=== PATIENT | male | born 1960 | race Caucasian/White ===

== ENCOUNTER 2017-08-09 09:56 | Outpatient (CLI) | payer OTHER ==
[~2017-08-09 09:56] MED LIST: DURAGESIC75 MCG/HR; FENTANYL1 EAC5 TD; ISENTRESS400 MG; KALETRA 100-251 EACH; LOVAZA1 GM; LYRICA150 MG; NABUMETONE500 MG PO; NORVIR80 MG/ML; OXYC1TAB9 PO; PERCOCET 5/3251 TAB PO; REYATAZ100 MG; SEPTRA DS TABLE1 TAB PO; TIVICAY50 MG; TRILEPTAL150 MG; TRUVADA TABLET1 TAB; VITAMIN D400 UNI2
== END 2017-08-09 10:06 | disposition home or self-care (01) ==
LOC: NUCLEAR 09:56
DX: M19.90 Unspecified osteoarthritis, unspecified site (principal); M06.9 Rheumatoid arthritis, unspecified; Z71.7 Human immunodeficiency virus [HIV] counseling
CPT/HCPCS: 78315; A9503

== ENCOUNTER 2017-09-14 15:04 | Outpatient (CLI) | payer OTHER | END 2017-09-14 15:05 | disposition home or self-care (01) | LOC: LAB 15:04 | DX: L97.513 Non-pressure chronic ulcer of other part of right foot with necrosis of muscle (principal) ==

== ENCOUNTER → 2017-11-02 | Outpatient (CLI) | payer OTHER | END | disposition home or self-care (01) | LOC: RAD 09:14 | DX: J44.1 Chronic obstructive pulmonary disease with (acute) exacerbation (principal) ==

== ENCOUNTER 2017-11-09 13:39 | Emergency (ER) | payer OTHER ==
[~2017-11-09] VITALS: Ht 167.6 cm; Wt 72.6 kg
[2017-11-09] MEDS ORDERED: DELTASONE20 MG PO (14:10)
[2017-11-09] MEDS ORDERED: SPIRIVA RESPIMAT4 G1 IH (14:11)
[2017-11-09] MEDS ORDERED: ULTRAM50 MG PO (14:12)
[2017-11-09] MEDS ORDERED: SYNTHROID150 MCG PO (14:12)
[2017-11-09] MEDS ORDERED: ADVAIR HFA 230/12 GM IH (14:12)
[2017-11-09] MEDS ORDERED: RESTORIL30 M1 PO (14:13)
[2017-11-09] MEDS ORDERED: SEROQUEL50 MG PO (14:13)
[2017-11-09] MEDS ORDERED: CITALOPRAM HBR40 MG PO (14:13)
== END 2017-11-09 17:36 | disposition home or self-care (01) ==
LOC: ER 13:39
DX: L02.415 Cutaneous abscess of right lower limb (principal); L08.89 Other specified local infections of the skin and subcutaneous tissue; S80.861S Insect bite (nonvenomous), right lower leg, sequela; W57.XXXS Bitten or stung by nonvenomous insect and other nonvenomous arthropods, sequela

== ENCOUNTER → 2017-11-13 | Outpatient (CLI) | payer OTHER ==
[~2017-11-13] MED LIST changes: +ADVAIR HFA 230/12 GM IH; +CITALOPRAM HBR40 MG PO; +DELTASONE20 MG PO; +RESTORIL30 M1 PO; +SEROQUEL50 MG PO; +SPIRIVA RESPIMAT4 G1 IH; +SYNTHROID150 MCG PO; +ULTRAM50 MG PO
== END | disposition home or self-care (01) ==
LOC: TOM 07:52 → RAD 07:52
DX: M25.551 Pain in right hip (principal); M25.552 Pain in left hip; M25.561 Pain in right knee; M25.562 Pain in left knee; M79.671 Pain in right foot; J44.1 Chronic obstructive pulmonary disease with (acute) exacerbation; R05 Cough; B20 Human immunodeficiency virus [HIV] disease; J20.9 Acute bronchitis, unspecified

== ENCOUNTER 2017-11-18 18:53 | Emergency (ER) | payer OTHER ==
[~2017-11-18] VITALS: Ht 167.6 cm; Wt 72.6 kg
== END 2017-11-18 20:52 | disposition home or self-care (01) ==
LOC: ER 18:53
DX: L03.012 Cellulitis of left finger (principal)

== ENCOUNTER 2017-12-14 17:03 | Emergency (ER) | payer OTHER ==
[~2017-12-14] VITALS: Ht 167.6 cm; Wt 71.2 kg
== END 2017-12-14 19:27 | disposition home or self-care (01) ==
LOC: ER 17:03
DX: S93.691A Other sprain of right foot, initial encounter (principal); X50.0XXA Overexertion from strenuous movement or load, initial encounter; Y93.01 Activity, walking, marching and hiking; Y92.89 Other specified places as the place of occurrence of the external cause; Y99.8 Other external cause status

== ENCOUNTER 2017-12-15 11:29 | Outpatient (CLI) | payer OTHER | END 2017-12-15 12:24 | disposition home or self-care (01) | LOC: NUCLEAR 11:29 | DX: I73.9 Peripheral vascular disease, unspecified (principal); I87.2 Venous insufficiency (chronic) (peripheral) ==

== ENCOUNTER 2017-12-18 13:11 | Outpatient (CLI) | payer OTHER | END 2017-12-18 13:16 | disposition home or self-care (01) | LOC: NUCLEAR 13:11 | DX: I73.9 Peripheral vascular disease, unspecified (principal) ==

== ENCOUNTER 2018-01-09 08:28 | Emergency (ER) | payer OTHER ==
[~2018-01-09] VITALS: Ht 157.5 cm; Wt 68.0 kg
[2018-01-09] MEDS ORDERED: MUPIROCIN22 GM TOP (10:06)
[2018-01-09] MEDS ORDERED: BACTRIM DS TAB1 EACH PO (10:06)
== END 2018-01-09 10:12 | disposition home or self-care (01) ==
LOC: ER 08:28
DX: L02.415 Cutaneous abscess of right lower limb (principal)

== ENCOUNTER 2018-01-21 11:24 | Emergency (ER) | payer OTHER ==
[~2018-01-21] VITALS: Ht 167.6 cm; Wt 76.2 kg
[~2018-01-21 11:24] MED LIST changes: +BACTRIM DS TAB1 EACH PO; +MUPIROCIN22 GM TOP
== END 2018-01-21 22:23 | disposition home or self-care (01) ==
LOC: ER 11:24
DX: J06.9 Acute upper respiratory infection, unspecified (principal); L08.89 Other specified local infections of the skin and subcutaneous tissue; L02.611 Cutaneous abscess of right foot; R50.9 Fever, unspecified; J11.1 Influenza due to unidentified influenza virus with other respiratory manifestations

== ENCOUNTER 2018-02-01 14:37 | Emergency (ER) | payer OTHER ==
[~2018-02-01] VITALS: Ht 172.7 cm; Wt 72.6 kg
== END 2018-02-01 22:54 | disposition home or self-care (01) ==
LOC: ER 14:37
DX: J40 Bronchitis, not specified as acute or chronic (principal); R06.02 Shortness of breath

== ENCOUNTER 2018-02-07 08:36 | Emergency (ER) | payer OTHER ==
[~2018-02-07] VITALS: Ht 167.6 cm; Wt 72.6 kg
[2018-02-07] MEDS ORDERED: ZITHROMAX500 MG PO (15:14)
== END 2018-02-07 15:21 | disposition home or self-care (01) ==
LOC: ER 08:36
DX: J20.9 Acute bronchitis, unspecified (principal); B37.1 Pulmonary candidiasis; B96.3 Hemophilus influenzae [H. influenzae] as the cause of diseases classified elsewhere

== ENCOUNTER 2018-02-14 14:47 | Outpatient (CLI) | payer OTHER ==
[~2018-02-14 14:47] MED LIST changes: +ZITHROMAX500 MG PO
== END 2018-02-14 14:54 | disposition home or self-care (01) ==
LOC: RAD 14:47
DX: M25.551 Pain in right hip (principal); M79.651 Pain in right thigh; M79.604 Pain in right leg; M25.561 Pain in right knee

== ENCOUNTER 2018-03-26 09:45 | Outpatient (CLI) | payer OTHER | END 2018-03-26 09:54 | disposition home or self-care (01) | LOC: RAD 09:45 | DX: R05 Cough (principal); J44.9 Chronic obstructive pulmonary disease, unspecified ==

== ENCOUNTER 2019-02-02 16:19 | Emergency (ER) | payer OTHER ==
[~2019-02-02] VITALS: Ht 167.6 cm; Wt 81.6 kg
[2019-02-02] MEDS ORDERED: ASPIRIN81 MG (16:51)
[2019-02-02] MEDS ORDERED: PLAVIX75 MG (16:51)
[2019-02-02] MEDS ORDERED: ADVAIR HFA 230/12 GM (16:52)
[2019-02-02] MEDS ORDERED: SPIRIVA RESPIMAT4 G1 (16:53)
[2019-02-02] MEDS ORDERED: VENTOLIN HFA18 GM (16:53)
== END 2019-02-02 20:54 | disposition home or self-care (01) ==
LOC: ER 16:19
DX: J45.998 Other asthma (principal)

== ENCOUNTER → 2019-02-18 17:57 | Outpatient (CLI) | payer OTHER ==
[~2019-02-18 17:57] MED LIST changes: +ADVAIR HFA 230/12 GM; +ASPIRIN81 MG; +PLAVIX75 MG; +SPIRIVA RESPIMAT4 G1; +VENTOLIN HFA18 GM
== END | disposition home or self-care (01) ==
LOC: RAD 17:57
DX: J44.9 Chronic obstructive pulmonary disease, unspecified (principal)

== ENCOUNTER 2019-03-31 09:49 | Emergency (ER) | payer OTHER ==
[~2019-03-31] VITALS: Ht 167.6 cm; Wt 78.5 kg
== END 2019-03-31 15:34 | disposition home or self-care (01) ==
LOC: ER 09:49
DX: B20 Human immunodeficiency virus [HIV] disease (principal); R51 Headache

== ENCOUNTER 2020-03-16 10:52 | Inpatient (IN) | payer OTHER ==
[~2020-03-16] VITALS: Ht 167.6 cm; Wt 81.6 kg
[2020-03-16] MEDS ORDERED: JULUCA 50-25 M1 EACH PO (11:04)
[2020-03-16] MEDS ORDERED: [UNRECOGNIZED DRUG - OTHER] (11:08)
[2020-03-24] MEDS ORDERED: PENTOXIFYLLINE400 MG (11:49)
[2020-03-24] MEDS ORDERED: CRESTOR5 MG (11:50)
[2020-03-24] MEDS ORDERED: SPIRIVA RESPIMAT4 GM (11:50)
[2020-03-24] MEDS ORDERED: TRILIPIX135 MG (11:50)
== END 2020-03-24 13:50 | disposition designated cancer center or children's hospital (05) | DRG 282 ==
LOC: ER 10:52 → MEDJ 16:34 → ICU-2 16:34 → ICU 03-17 13:21 → MEDI 03-20 19:25 → SURG 03-20 19:39 → ICU 03-20 19:45 → MEDI 03-22 11:12 → MEDJ 03-22 11:42
PROVIDERS: ADMIT Internal Medicine; ATTEND Internal Medicine
PROC: 3E0F7SF Introduction of Other Gas into Respiratory Tract, Via Natural or Artificial Opening (ICD-10-PCS; 2020-03-16)
PROC: B24BZZZ Ultrasonography of Heart with Aorta (ICD-10-PCS; 2020-03-17)
PROC: 4A12X4Z Monitoring of Cardiac Electrical Activity, External Approach (ICD-10-PCS; principal; 2020-03-22)
DX: I21.4 Non-ST elevation (NSTEMI) myocardial infarction (principal); J44.9 Chronic obstructive pulmonary disease, unspecified; F17.210 Nicotine dependence, cigarettes, uncomplicated; G62.9 Polyneuropathy, unspecified; E03.9 Hypothyroidism, unspecified; I73.9 Peripheral vascular disease, unspecified; F31.9 Bipolar disorder, unspecified; E78.2 Mixed hyperlipidemia; Z21 Asymptomatic human immunodeficiency virus [HIV] infection status; Z20.828 Contact with and (suspected) exposure to other viral communicable diseases; R73.02 Impaired glucose tolerance (oral)

== ENCOUNTER 2020-06-01 15:36 | Emergency (ER) | payer OTHER ==
[~2020-06-01] VITALS: Ht 167.6 cm; Wt 81.6 kg
[~2020-06-01 15:36] MED LIST changes: +CRESTOR5 MG; +JULUCA 50-25 M1 EACH PO; +PENTOXIFYLLINE400 MG; +SPIRIVA RESPIMAT4 GM; +TRILIPIX135 MG; +[UNRECOGNIZED DRUG - OTHER]
[2020-06-01] MEDS ORDERED: BRILINTA60 MG (18:08)
[2020-06-01] MEDS ORDERED: ACETAMINOPHEN650 M2 PO (21:16)
[2020-06-01] MEDS ORDERED: CORTISPORIN EAR10 M1 OT ×2 (21:16→21:32)
== END 2020-06-01 22:02 | disposition home or self-care (01) ==
LOC: ER 15:36
DX: H60.8X2 Other otitis externa, left ear (principal); H92.02 Otalgia, left ear; R00.2 Palpitations

== ENCOUNTER 2020-07-12 15:59 | Inpatient (IN) | payer OTHER ==
[~2020-07-12] VITALS: Ht 167.6 cm; Wt 81.6 kg
[~2020-07-12 15:59] MED LIST changes: +ACETAMINOPHEN650 M2 PO; +BRILINTA60 MG; +CORTISPORIN EAR10 M1 OT
[2020-07-12] MEDS ORDERED: PIFELTRO100 MG (16:16)
[2020-07-12] MEDS ORDERED: ISOSORBIDE DINI30 MG (16:17)
[2020-07-12] MEDS ORDERED: TOPROL XL25 M1 (16:17)
[2020-07-12] MEDS ORDERED: ALPRAZOLAM ODT1 MG (16:17)
[2020-07-12] MEDS ORDERED: B-COMPLEX WITH1 EAC1 (16:18)
[2020-07-12] MEDS ORDERED: [UNRECOGNIZED DRUG - OTHER] (16:18)
[2020-07-12] MEDS ORDERED: ARTHRITIS PAIN650 M2 (16:18)
[2020-07-12] MEDS ORDERED: ANTIOXIDANT FO1 EACH (16:19)
[2020-07-12] MEDS ORDERED: DURAGESIC1 EAC1 (16:20)
[2020-08-03] MEDS ORDERED: DULOXETINE HCL40 MG PO (11:01)
[2020-08-03] MEDS ORDERED: LYRICA150 MG PO (11:01)
== END 2020-07-17 17:37 | disposition home or self-care (01) | DRG 303 ==
LOC: ER 15:59 → SEC-K 07-13 08:49 → ICU-2 07-13 08:49 → MEDJ 07-14 11:12
PROVIDERS: ADMIT Internal Medicine; ATTEND Internal Medicine
PROC: B24BZZZ Ultrasonography of Heart with Aorta (ICD-10-PCS; 2020-07-13)
PROC: 4A12X4Z Monitoring of Cardiac Electrical Activity, External Approach (ICD-10-PCS; principal; 2020-07-14)
PROC: 4A02XM4 Measurement of Cardiac Total Activity, External Approach (ICD-10-PCS; 2020-07-16)
PROC: 3E073KZ Introduction of Other Diagnostic Substance into Coronary Artery, Percutaneous Approach (ICD-10-PCS; 2020-07-16)
DX: I25.10 Atherosclerotic heart disease of native coronary artery without angina pectoris (principal); I24.9 Acute ischemic heart disease, unspecified; I50.22 Chronic systolic (congestive) heart failure; Z21 Asymptomatic human immunodeficiency virus [HIV] infection status; J44.9 Chronic obstructive pulmonary disease, unspecified; F17.210 Nicotine dependence, cigarettes, uncomplicated; G62.89 Other specified polyneuropathies; Z20.822 Contact with and (suspected) exposure to COVID-19; Z95.5 Presence of coronary angioplasty implant and graft; I11.0 Hypertensive heart disease with heart failure

== ENCOUNTER 2020-08-03 12:10 | Outpatient (CLI) | payer OTHER ==
[~2020-08-03 12:10] MED LIST changes: +ALPRAZOLAM ODT1 MG; +ANTIOXIDANT FO1 EACH; +ARTHRITIS PAIN650 M2; +B-COMPLEX WITH1 EAC1; +DULOXETINE HCL40 MG PO; +DURAGESIC1 EAC1; +ISOSORBIDE DINI30 MG; +LYRICA150 MG PO; +PIFELTRO100 MG; +TOPROL XL25 M1; +[UNRECOGNIZED DRUG - OTHER]
== END 2020-08-03 12:15 | disposition home or self-care (01) ==
LOC: LAB 12:10
PROVIDERS: ATTEND Physical Medicine & Rehabilitation
DX: M79.18 Myalgia, other site (principal)

== ENCOUNTER 2020-09-28 08:06 | Emergency (ER) | payer OTHER ==
[~2020-09-28] VITALS: Ht 167.6 cm; Wt 78.0 kg
[2020-09-28] MEDS ORDERED: TIVICAY50 MG (08:25)
[2020-09-28] MEDS ORDERED: ZYRTEC10 M3 PO (11:59)
[2020-09-28] MEDS ORDERED: MOMETASONE FURO15 G1 TOP (11:59)
[2020-09-28] MEDS ORDERED: BACTRIM DS TAB1 EACH PO (11:59)
== END 2020-09-28 12:19 | disposition home or self-care (01) ==
LOC: ER 08:06
DX: R21 Rash and other nonspecific skin eruption (principal)

== ENCOUNTER → 2020-11-17 08:04 | Outpatient (CLI) | payer OTHER ==
[~2020-11-17 08:04] MED LIST changes: +MOMETASONE FURO15 G1 TOP; +PREGABALIN100 MG PO; +ZYRTEC10 M3 PO
== END | disposition home or self-care (01) ==
LOC: NUCLEAR 08:00
PROVIDERS: ATTEND Internal Medicine
DX: R07.89 Other chest pain (principal)
CPT/HCPCS: 78452; 93017; A9500; J0153

== ENCOUNTER 2021-09-21 15:37 | Outpatient (CLI) | payer OTHER | END 2021-09-21 15:45 | disposition home or self-care (01) | LOC: RAD 15:37 | PROVIDERS: ATTEND Student in an Organized Health Care Education/Training Program | DX: M47.812 Spondylosis without myelopathy or radiculopathy, cervical region (principal); M54.12 Radiculopathy, cervical region; M25.551 Pain in right hip; M25.552 Pain in left hip ==

== ENCOUNTER 2021-11-11 08:40 | Outpatient (CLI) | payer OTHER | END 2021-11-11 08:50 | disposition home or self-care (01) | LOC: MRI 08:40 | PROVIDERS: ATTEND Physical Medicine & Rehabilitation | DX: M54.50 Low back pain, unspecified (principal); M54.16 Radiculopathy, lumbar region | CPT/HCPCS: 72148 ==

== ENCOUNTER 2021-11-23 11:32 | Outpatient (CLI) | payer OTHER | END 2021-11-23 11:40 | disposition home or self-care (01) | LOC: TOM 11:32 | PROVIDERS: ATTEND Internal Medicine Gastroenterology | DX: R10.84 Generalized abdominal pain (principal); R10.2 Pelvic and perineal pain ==

== ENCOUNTER 2021-11-30 14:14 | Outpatient (CLI) | payer OTHER | END 2021-11-30 14:16 | disposition home or self-care (01) | LOC: RAD 14:14 | PROVIDERS: ATTEND Student in an Organized Health Care Education/Training Program | DX: M51.36 Other intervertebral disc degeneration, lumbar region (principal); M54.16 Radiculopathy, lumbar region; M43.16 Spondylolisthesis, lumbar region ==

== ENCOUNTER 2021-12-02 13:40 | Outpatient (CLI) | payer OTHER | END 2021-12-02 14:00 | disposition home or self-care (01) | LOC: RAD 13:40 | PROVIDERS: ATTEND Student in an Organized Health Care Education/Training Program | DX: Z01.818 Encounter for other preprocedural examination (principal); M54.16 Radiculopathy, lumbar region ==

== ENCOUNTER 2022-02-12 19:30 | Emergency (ER) | payer OTHER ==
[~2022-02-12] VITALS: Ht 167.6 cm; Wt 83.5 kg
[2022-02-12] MEDS ORDERED: METAXALONE800 MG PO (23:05)
[2022-02-12] MEDS ORDERED: MEDROLPACK PO (23:05)
== END 2022-02-12 23:55 | disposition home or self-care (01) ==
LOC: ER 19:30
DX: S39.012A Strain of muscle, fascia and tendon of lower back, initial encounter (principal); X58.XXXA Exposure to other specified factors, initial encounter; Y93.9 Activity, unspecified; Y92.9 Unspecified place or not applicable; Y99.9 Unspecified external cause status; Z98.1 Arthrodesis status; Z88.0 Allergy status to penicillin; Z88.8 Allergy status to other drugs, medicaments and biological substances

== ENCOUNTER 2022-07-08 07:58 | Outpatient (CLI) | payer OTHER ==
[~2022-07-08 07:58] MED LIST changes: +MEDROLPACK PO; +METAXALONE800 MG PO
== END 2022-07-08 08:10 | disposition home or self-care (01) ==
LOC: MRI 07:58
PROVIDERS: ATTEND Student in an Organized Health Care Education/Training Program
DX: M54.50 Low back pain, unspecified (principal); M51.36 Other intervertebral disc degeneration, lumbar region; Z98.1 Arthrodesis status
CPT/HCPCS: 72148

== ENCOUNTER 2022-07-30 11:45 | Emergency (ER) | payer OTHER ==
[~2022-07-30] VITALS: Ht 167.6 cm; Wt 78.9 kg
== END 2022-07-30 18:22 | disposition home or self-care (01) ==
LOC: ER 11:45
DX: B59 Pneumocystosis (principal); B20 Human immunodeficiency virus [HIV] disease; J44.9 Chronic obstructive pulmonary disease, unspecified; J45.909 Unspecified asthma, uncomplicated; Z88.6 Allergy status to analgesic agent; Z88.2 Allergy status to sulfonamides; I25.10 Atherosclerotic heart disease of native coronary artery without angina pectoris; I73.9 Peripheral vascular disease, unspecified; Z98.890 Other specified postprocedural states; Z87.891 Personal history of nicotine dependence

== ENCOUNTER 2022-09-08 08:58 | Outpatient (CLI) | payer OTHER | END 2022-09-08 09:15 | disposition home or self-care (01) | LOC: MRI 08:58 | PROVIDERS: ATTEND Pain Medicine Interventional Pain Medicine | DX: M54.50 Low back pain, unspecified (principal) | CPT/HCPCS: 72149 ==

== ENCOUNTER 2022-09-22 11:58 | Outpatient (CLI) | payer OTHER | END 2022-09-22 12:08 | disposition home or self-care (01) | LOC: SONOGRAMA 11:58 | PROVIDERS: ATTEND Physical Medicine & Rehabilitation | DX: D17.9 Benign lipomatous neoplasm, unspecified (principal); D17.30 Benign lipomatous neoplasm of skin and subcutaneous tissue of unspecified sites; D17.1 Benign lipomatous neoplasm of skin and subcutaneous tissue of trunk ==

== ENCOUNTER → 2022-12-03 | Emergency (ER) | payer OTHER ==
[~2022-12-03] VITALS: Ht 167.6 cm; Wt 78.0 kg
== END | disposition home or self-care (01) ==
LOC: ER
DX: I21.4 Non-ST elevation (NSTEMI) myocardial infarction (principal); I24.9 Acute ischemic heart disease, unspecified; B20 Human immunodeficiency virus [HIV] disease

== ENCOUNTER 2023-01-25 10:16 | Outpatient (CLI) | payer OTHER | END 2023-01-25 10:20 | disposition home or self-care (01) | LOC: NUCLEAR 10:16 | PROVIDERS: ATTEND Physical Medicine & Rehabilitation | DX: I87.2 Venous insufficiency (chronic) (peripheral) (principal) ==

== ENCOUNTER → 2023-02-07 | Outpatient (CLI) | payer OTHER | END | disposition home or self-care (01) | LOC: RAD 13:30 | PROVIDERS: ATTEND Student in an Organized Health Care Education/Training Program | DX: M51.36 Other intervertebral disc degeneration, lumbar region (principal); M54.16 Radiculopathy, lumbar region ==

== ENCOUNTER 2023-03-27 07:58 | Outpatient (CLI) | payer OTHER | END 2023-03-27 07:59 | disposition home or self-care (01) | LOC: NUCLEAR 07:58 | PROVIDERS: ATTEND Internal Medicine | DX: R07.9 Chest pain, unspecified (principal) | CPT/HCPCS: 78452; 93017; A9500; J0153 ==

== ENCOUNTER 2023-03-31 13:08 | Outpatient (CLI) | payer OTHER | END 2023-03-31 13:10 | disposition home or self-care (01) | LOC: RAD 13:08 | PROVIDERS: ATTEND Internal Medicine Pulmonary Disease | DX: J44.1 Chronic obstructive pulmonary disease with (acute) exacerbation (principal); Z87.891 Personal history of nicotine dependence ==

== ENCOUNTER 2023-05-15 08:13 | Outpatient (CLI) | payer OTHER | END 2023-05-15 08:21 | disposition home or self-care (01) | LOC: MRI 08:13 | PROVIDERS: ATTEND Specialist | DX: R55 Syncope and collapse (principal); G31.84 Mild cognitive impairment of uncertain or unknown etiology; Z88.0 Allergy status to penicillin; Z88.1 Allergy status to other antibiotic agents; Z97.8 Presence of other specified devices; Z98.1 Arthrodesis status | CPT/HCPCS: 70552; 72100; Q9965; 70553 ==

== ENCOUNTER → 2023-05-15 09:31 | Outpatient (CLI) | payer OTHER ==
[2023-05-15 10:17] LABS: CREATININE SERUM 1.04 mg/dL (0.70-1.30)
== END | disposition home or self-care (01) ==
LOC: LAB 09:31
PROVIDERS: ATTEND Radiology Diagnostic Radiology
DX: R55 Syncope and collapse (principal); G31.84 Mild cognitive impairment of uncertain or unknown etiology; Z88.0 Allergy status to penicillin; Z88.1 Allergy status to other antibiotic agents; Z88.6 Allergy status to analgesic agent

== ENCOUNTER 2024-01-30 13:50 | Outpatient (CLI) | payer OTHER | END 2024-01-30 14:00 | disposition home or self-care (01) | LOC: TOM 13:50 | DX: J44.9 Chronic obstructive pulmonary disease, unspecified (principal) ==

== ENCOUNTER 2024-02-23 00:05 | Emergency (ER) | payer OTHER ==
[~2024-02-23] VITALS: Ht 167.6 cm; Wt 81.6 kg
[2024-02-23] MEDS ORDERED: HYOSCYAMINE SULFATE 0.125 MG TAB.SUBL SL STA (00:51)
[2024-02-23] MEDS ORDERED: METOCLOPRAMIDE HCL 5 MG/ML VIAL IM STA (00:52)
[2024-02-23] MEDS ORDERED: RINGERS SOLUTION,LACTATED 500 ML IV STA (00:53)
[2024-02-23] MEDS ORDERED: FAMOtidine 10 MG/ML (4ML VIAL) IV PUSH STA (00:54)
[2024-02-23] MEDS ORDERED: HYOSCYAMINE SULFATE 0.125 MG TAB.SUBL ONE (01:09)
[2024-02-23] MEDS ORDERED: METOCLOPRAMIDE HCL 5 MG/ML VIAL ONE (01:09)
[2024-02-23] MEDS ORDERED: FAMOTIDINE/PF 20 MG/2 ML VIAL ONE (01:10)
== END 2024-02-23 02:57 | disposition home or self-care (01) ==
LOC: ER 00:07
DX: K29.70 Gastritis, unspecified, without bleeding (principal); R12 Heartburn; Z88.0 Allergy status to penicillin; Z88.8 Allergy status to other drugs, medicaments and biological substances
CPT/HCPCS: 96365; 96372; 99282; J2765; J3490

== ENCOUNTER 2024-04-26 13:31 | Outpatient (CLI) | payer OTHER | END 2024-04-26 13:36 | disposition home or self-care (01) | LOC: SONOGRAMA 13:31 | DX: M12.511 Traumatic arthropathy, right shoulder (principal) ==

== ENCOUNTER 2024-11-07 10:48 | Emergency (ER) | payer OTHER ==
[~2024-11-07] VITALS: Ht 167.6 cm; Wt 82.6 kg
[2024-11-07] MEDS ORDERED: PIFELTRO100 MG PO (11:16)
[2024-11-07] MEDS ORDERED: DIAZEPAM10 MG PO (11:16)
[2024-11-07] MEDS ORDERED: TIVICAY50 MG PO (11:16)
[2024-11-07] MEDS ORDERED: RANOLAZINE ER1000 MG PO (11:17)
[2024-11-07] MEDS ORDERED: FENOFIBRATE145 MG PO (11:17)
[2024-11-07] MEDS ORDERED: ACETAMINOPHEN 500 MG GEL..CAP PO ONE ×2 (11:30→11:33)
[2024-11-07] MEDS ORDERED: DEXAMETHASONE SODIUM PHOSPHATE 4 MG/ML VIAL IM ONE (11:30)
[2024-11-07] MEDS ORDERED: DEXAMETHASONE SODIUM PHOSPHATE 4 MG/ML VIAL ONE (11:33)
== END 2024-11-07 13:46 | disposition home or self-care (01) ==
LOC: ER 10:49
DX: M54.50 Low back pain, unspecified (principal); Z88.0 Allergy status to penicillin; M62.830 Muscle spasm of back
CPT/HCPCS: 96372; 99282; J1100

== ENCOUNTER 2024-11-11 10:18 | Outpatient (CLI) | payer OTHER ==
[~2024-11-11 10:18] MED LIST changes: +DIAZEPAM10 MG PO; +FENOFIBRATE145 MG PO; +PIFELTRO100 MG PO; +RANOLAZINE ER1000 MG PO; +TIVICAY50 MG PO
== END 2024-11-11 10:22 | disposition home or self-care (01) ==
LOC: MRI 10:18
PROVIDERS: ATTEND Colon & Rectal Surgery
DX: R62.59 Other lack of expected normal physiological development in childhood (principal)
CPT/HCPCS: 72197; Q9965

== ENCOUNTER → 2024-12-12 | Outpatient (CLI) | payer OTHER | END | disposition home or self-care (01) | LOC: MRI 13:28 → RAD 13:28 | PROVIDERS: ATTEND Physical Medicine & Rehabilitation | DX: M54.50 Low back pain, unspecified (principal); M54.16 Radiculopathy, lumbar region ==

== ENCOUNTER 2024-12-13 10:47 | Outpatient (CLI) | payer OTHER | END 2024-12-13 10:56 | disposition home or self-care (01) | LOC: MRI 10:47 | PROVIDERS: ATTEND Physical Medicine & Rehabilitation | DX: M54.50 Low back pain, unspecified (principal); M54.16 Radiculopathy, lumbar region | CPT/HCPCS: 72149 ==

== ENCOUNTER 2025-02-22 12:48 | Emergency (ER) | payer OTHER ==
[~2025-02-22] VITALS: Ht 167.6 cm; Wt 83.9 kg
[2025-02-22] MEDS ORDERED: ZETIA10 MG (13:35)
[2025-02-22 17:27] LABS: BASO % 0.7 % (0.1-1.2); EOS # 0.12 (0.04-0.54); EOS % 1.4 % (0.7-7.0); LYMPH # 4.46 (1.18-3.74); LYMPH % 52.3 % (19.3-53.1); MEAN PLATELET VOLUME 8.60 fl (9.4-12.4); MONO # 0.72 (0.24-0.82); MONO % 8.5 % (4.7-12.5); NEUT # 3.14 (1.56-6.13); NEUT % 36.9 % (34.0-71.1); RED CELL DISTRIBUTION WIDTH 12.2 % (11.6-14.4)
[2025-02-22 17:43] LABS: URINE APPEARANCE Clear; URINE BILIRRUBIN Negative (NEGATIVE); URINE BLOOD Trace; URINE COLOR Dark Yellow; URINE GLUCOSE Negative (NEGATIVE); URINE KETONE Trace (NEGATIVE); URINE LEUKOCYTE Negative; URINE NITRATE Negative; URINE PROTEIN Negative (NEGATIVE); URINE UROBILINOGEN 1.0 E.U./dl
[2025-02-22 17:47] LABS: URINE BACTERIA 14.3 uL (0.0-1933); URINE EPITHELIAL CELLS 3.6 uL (0.0-38.8); URINE RBC 62.1 uL (0.0-20.8); URINE WBC 3.0 uL (0.0-23.2)
[2025-02-22 18:02] LABS: COVID-19 AG NEGATIVE (NEGATIVE)
[2025-02-22 18:10] LABS: ALT/SGPT 19.0 U/L (12-78); AST/SGOT 12.0 U/L (15-37); BILIRUBIN TOTAL 0.83 mg/dL (0.3-1.2); BUN CREA RATIO 15.0 (7.0-25.0); CREATININE SERUM 1.22 mg/dL (0.70-1.30); GFR 59.43; GLOBULINA 3.1 G/DL (2.4-3.5); GLUCOSE FASTING 122.0 mg/dL (65-100); OSMOLALITY SERUM 284.0 MOSM/KG (275-295)
[2025-02-22 19:50] LABS: TYPE CELLS SQUAMOUS; URINE CAST 0.43 uL (0.0-1.40)
== END 2025-02-22 21:58 | disposition home or self-care (01) ==
LOC: ER 12:48
PROVIDERS: General Practice
DX: J06.9 Acute upper respiratory infection, unspecified (principal); R53.81 Other malaise; B20 Human immunodeficiency virus [HIV] disease; Z20.822 Contact with and (suspected) exposure to COVID-19; Z86.79 Personal history of other diseases of the circulatory system; Z88.0 Allergy status to penicillin; Z88.8 Allergy status to other drugs, medicaments and biological substances

== ENCOUNTER 2025-06-09 13:00 | Outpatient (CLI) | payer OTHER ==
[~2025-06-09 13:00] MED LIST changes: +ZETIA10 MG
== END 2025-06-09 13:08 | disposition home or self-care (01) ==
LOC: RAD 13:00
PROVIDERS: ATTEND Family Medicine Adult Medicine
DX: M22.2X1 Patellofemoral disorders, right knee (principal)

== ENCOUNTER 2025-06-27 13:22 | Outpatient (CLI) | payer OTHER | END 2025-06-27 13:24 | disposition home or self-care (01) | LOC: MRI 13:22 | PROVIDERS: ATTEND Internal Medicine | DX: M23.221 Derangement of posterior horn of medial meniscus due to old tear or injury, right knee (principal); M80.00XA Age-related osteoporosis with current pathological fracture, unspecified site, initial encounter for fracture | CPT/HCPCS: 73721 ==